=== PATIENT | female | born 1995 | race Caucasian/White ===

== ENCOUNTER 2021-11-12 07:14 | Observation (INO) ==
[2021-11-12] MEDS ORDERED: IOPAMIDOL 100 ML BOTTLE IV ONE (07:15)
--- NOTE | 2021-11-12 07:35 | Emergency Department Note ---
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 She reports that she underwent open surgical intervention of her Nutcracker syndrome one week ago at . She initially recovered well and was DC'd, but has had only one very small BM since the surgery. She continues to pass gas, but is now having nausea and vomiting significantly limiting her PO intake. The emesis is yellow or dry heaving, no blood or bile present. She also notes abdominal pain in the epigastric area and under the B/L ribs, which is aching, and is worse w/ emesis. She denies F/C, CP, SOB, and is urinating well. Related Data Previous Rx's Medication Instructions Recorded metoclopramide HCl 10 mg tablet 10 mg PO Q6H PRN #20 tab 07/22/21 Allergies Allergy/AdvReac Type Severity Reaction Status Date / Time morphine Allergy Intermediate Numbness Verified 11/12/21 07:20 Review of Systems ROS ROS Narrative: Narrative: All systems ED: reviewed and negative except as stated. PFSH Narrative Patient History Narrative: Narrative: Medical/Surgical/Family History All Active Problems (Updated 11/12/21 @ 18:45 by Isreal Little MD) Viral gastroenteritis (Acute) Nausea & vomiting (Acute) Diarrhea (Acute) Abdominal pain (Acute) Nausea & vomiting (Acute) Nutcracker phenomenon of renal vein (Acute) Pelvic pain (Acute) Acute dehydration (Acute) Pelvic congestion (Acute) Chronic female pelvic pain (Acute) Viral URI (Acute) Hordeolum externum (stye) (Acute) Urinary tract infection (Acute) Nausea & vomiting (Acute) Vomiting (Acute) Hypokalemia (Acute) Chest pain (Acute) Abdominal pain (Acute) Nutcracker phenomenon of renal vein (Acute) Medical History Hordeolum externum (stye) Social History Smoking Status: Former smoker Alcohol Intake Frequency: does not drink Substance Use: does not use Exam Narrative Narrative: Narrative: General Limitations: no limitations General appearance: Present alert and in no apparent distress Head Head: Present atraumatic and normocephalic ENT ENT: Present normal oropharynx and mucous membranes dry Chest Chest: Present normal inspection and symmetric chest wall rise Respiratory Respiratory: Present normal lung sounds bilaterally; Absent respiratory distress, rales/crackles, wheezes or stridor Cardiovascular Cardiovascular: Present regular rate, normal rhythm, +S1, +S2 and other (2+ B/L radial and DP pulses); Absent systolic murmur or diastolic murmur Adbominal Abdominal: Present soft, tenderness (epigastric area, B/LUQ), guarding (vo luntary), rigidity, diminished bowel sounds and other (midline vertical epigastric incision about 7cm healing well no surrounding erythema, no crepitus, no warmth, appropriate postop TTP); Absent distention or rebound Extremities Extremities: Absent pedal edema Neurological Neurological: Present alert and oriented X3 Psychiatric Psychiatric: Present normal affect Skin Skin: Present warm (WNL) and dry Course Vital Signs Vital signs: Vital Signs Temperature 98.0 F 11/12/21 07:14 Pulse Rate 79 11/12/21 07:14 Respiratory Rate 16 11/12/21 07:14 Blood Pressure 138/93 11/12/21 07:14 Pulse Oximetry (%) 98 11/12/21 07:14 Temperature 98.0 F 11/12/21 07:14 Pulse Rate 85 11/12/21 17:18 Respiratory Rate 16 11/12/21 07:14 Blood Pressure 152/91 11/12/21 17:16 Pulse Oximetry (%) 99 11/12/21 17:18 [facility] Narrative Medical decision making narrative: Narrative: 26 yo F w/ h/o Nutcracker syndrome now one week postop from surgical repair p/w abdominal pain, N/V, decreased BM. DDX - peritonitis, bowel obstruction, bowel perforation, intra-abdominal abscess, postop ileus Pt presented w/ a reassuring abdominal exam, uncomfortable d/t N/V, but stable. Given her recent open surgery for Nutcracker syndrome, I pursued a CT. CT demonstrated possible extrinsic compression of the L renal vein and venous congestion in the L kidney. There was no evidence of bowel perforation, obstruction, intra-abdominal abscess, ileus or other complication. I d/w Dr Arroyo, on for vascular surgery at [place], and he felt that it was actually compared prior to the previous CT and that there was no evidence of surgical complication. He was agreeable to T/F if needed for Sx control but there were ultimately no beds available at [place]. I cont'd managing her Sx w/ multiple rounds of antiemetics and IVF, however she had no improvement. I d/w him again and he felt that admission here for Sx control would be fine. Dr Guan then accepted the pt for admission. Lab Data Result diagrams: 11/12/21 07:35 11/12/21 07:35 Labs: Lab Results 11/12/21 11/12/21 11/12/21 Range/Units 07:35 07:35 07:40 WBC 12.2 H (4.5-11.0) K/mcL RBC 4.44 (3.59-5.38) M/mcL Hgb 13.2 (11.2-15.7) g/dL Hct 37.8 (34.1-44.9) % MCV 85.1 (80.0-100.0) fL MCH 29.7 (26.0-34.0) pg MCHC 34.9 (31.0-36.0) g/dL RDW 11.3 L (11.5-14.5) % Plt Count 383 (140-440) K/mcL MPV 9.6 (7.4-10.4) fL Neut % (Auto) 77.9 (38.0-78.0) % Lymph % (Auto) 14.2 L (15.5-49.0) % [place] % (Auto) 6.8 (1.0-12.0) % Eos % (Auto) 0.8 (0.0-7.0) % Baso % (Auto) 0.3 (0.0-2.0) % Lymph # (Auto) 1.74 (1.50-4.80) K/mcL [place] # (Auto) 0.83 (0.10-0.90) K/mcL Eos # (Auto) 0.10 (0.00-0.70) K/mcL Baso # (Auto) 0.04 (0.00-0.30) K/mcL Absolute Neutrophils 9.52 H (1.80-8.00) K/mcL Sodium 136 (133-145) mmol/L Potassium 3.7 (3.3-5.1) mmol/L Chloride 98 (96-108) mmol/L Carbon Dioxide 21 L (22-30) mmol/L Anion Gap 17.0 H (8.0-16.0) BUN 4 L (6-20) mg/dL Creatinine 0.9 (0.6-1.1) mg/dL GFR Calculation 89 Glucose 97 (70-105) mg/dL Calcium 9.8 (8.6-10.4) mg/dL Total Bilirubin 0.4 (0.1-1.0) mg/dL AST 52 H (<32) U/L ALT 29 (<40) U/L Alkaline Phosphatase 63 (39-117) U/L Total Protein 8.2 (5.9-8.4) gm/dL Albumin 4.6 (3.2-5.2) gm/dL Globulin 3.6 (2.2-3.7) gm/dL Albumin/Globulin Ratio 1.3 (1.0-2.3) Lipase 13 (7-60) U/L Urine Color Yellow Urine Appearance Hazy A (Clear) Urine pH 6.0 (5.0-9.0) Ur Specific [place] 1.021 (1.000-1.035) Urine Protein 30 A (Negative) mg/dL Urine Glucose (UA) Negative (Negative) mg/dL Urine Ketones 80 A (Negative) mg/dL Urine Occult Blood Negative (Negative) mg/dL Urine Nitrate Negative (Negative) Urine Bilirubin Negative (Negative) mg/dL Urine Urobilinogen Negative mg/dL Ur Leukocyte Esterase Negative (Negative) /uL Urine RBC 4 H (0-3) /hpf Urine WBC 6 H (0-4) /hpf Ur Squamous Epith Cells < 1 (0-4) /hpf Urine Bacteria None (0) /hpf Hyaline Casts 3 H (0-2) /lph Urine Mucus Many A (None) /hpf Ur Culture Indicated? No ED POC Tests ED POC Tests: ZECHARIAH - SARS Antigen Negative HCG POC Results Negative Discharge Plan Patient/Caregiver Discharge Instructions Pt seen by BRAKE REPAIRER/PA only: No Clinical Impression: Nausea & vomiting, Abdominal pain, Acute dehydration Patient Disposition: Xfer As Inpt ([facility]) Condition: Good Discharge Date/Time: 12/12/21 17:24
[2021-11-12 07:58] LABS: Basophils # (Auto) 0.04 K/mcL (0.00-0.30); Basophils % (Auto) 0.3 % (0.0-2.0); Eosinophils % (Auto) 0.8 % (0.0-7.0); Hematocrit 37.8 % (34.1-44.9); Hemoglobin 13.2 g/dL (11.2-15.7); Lymphocytes # (Auto) 1.74 K/mcL (1.50-4.80); Lymphocytes % (Auto) 14.2 % (15.5-49.0); Mean Cell Volume 85.1 fL (80.0-100.0); Mean Corpuscular HGB Conc 34.9 g/dL (31.0-36.0); Mean Platelet Volume 9.6 fL (7.4-10.4); Monocytes # (Auto) 0.83 K/mcL (0.10-0.90); Monocytes % (Auto) 6.8 % (1.0-12.0); Neutrophils % (Auto) 77.9 % (38.0-78.0); Platelet Count 383 K/mcL (140-440); RBC 4.44 M/mcL (3.59-5.38); Red Cell Distribution Width 11.3 % (11.5-14.5); WBC 12.2 K/mcL (4.5-11.0)
[2021-11-12] MEDS ORDERED: METOCLOPRAMIDE 10 MG/2 ML VIAL IV ONE ×2 (08:06→12:25)
[2021-11-12] MEDS ORDERED: diphenhydrAMINE 50 MG/ML VIAL IV ONE (08:06)
[2021-11-12 08:21] LABS: ALT/SGPT 29 U/L (<40); AST/SGOT 52 U/L (<32); Albumin 4.6 gm/dL (3.2-5.2); Albumin/Globulin Ratio 1.3 (1.0-2.3); Alkaline Phosphatase 63 U/L (39-117); Bilirubin,Total 0.4 mg/dL (0.1-1.0); Blood Urea Nitrogen 4 mg/dL (6-20); Calcium 9.8 mg/dL (8.6-10.4); Carbon Dioxide 21 mmol/L (22-30); Chloride 98 mmol/L (96-108); Globulin 3.6 gm/dL (2.2-3.7); Glomerular Filtration Rate 89; Glucose 97 mg/dL (70-105)
--- NOTE | 2021-11-12 08:32 | Cat Scan Report ---
INDICATION: Nausea and vomiting. Patient has a history of recent surgery for not Nutcracker Syndrome. COMPARISON: Preoperative CT scans dated 07/17/2021 and 07/08/2021 TECHNIQUE: Axial images were obtained through the abdomen and pelvis. Sagittally and coronally reformatted images. 80 mL Isovue 370 injected intravenously. Scans were obtained during arterial and portal venous phases FINDINGS: Lung bases:Negative. No pulmonary parenchymal nodule. No pleural fluid or pericardial fluid Liver:Negative. No focal intrahepatic mass. No focal abnormality. Liver contour is smooth. No evidence for cirrhosis Gallbladder, bilary:No calcified gallstones. No gallbladder wall thickening. No dilated intra or extrahepatic bile ducts. Spleen:No splenomegaly. Normal enhancement of splenic and portal veins. Pancreas:No pancreatic mass. No peripancreatic abnormality Adrenal glands:Negative Kidneys,ureters,bladder:Normal right kidney. Normal nephrogram with normal enhancement of cortex and medulla. No hydronephrosis. No solid or cystic mass. Left kidney is enlarged. Left kidney measures 11.6 cm in craniocaudal dimension compared with 9.8 cm renal length of the right kidney. There is heterogeneous enhancement with persistent cortical enhancement and delayed medullary enhancement. There is amorphous retroperitoneal soft tissue density. This is para-aortic and surrounds the renal veins and arteries as well as the superior mesenteric artery. Patient is recently postoperative. Renal arteries are normal bilaterally. No renal artery stenosis or thrombosis. Renal veins enhance normally. Right renal vein is normal and empties into the inferior vena cava. There is marked attenuation of the left renal vein proximal to the inferior vena caval insertion. This appears patent but markedly narrowed. There is no detectable intravenous filling defect and this narrowing appears to be extrinsic. Abnormality of the left renal parenchyma is probably due to venous congestion. No hydroureter. No ureteral calculus. No bladder stone. No detectable bladder mass. Gastrointestinal:No detectable colonic mass. There is no diverticulitis. Negative small bowel. No mechanical small bowel obstruction. No bowel wall thickening. No focal abnormality. Negative stomach and duodenum. No focal abnormality. Appendix: The appendix is negative Vascular:As described above this patient has undergone operative repair for Nutcracker Syndrome (left renal vein compression by superior mesenteric artery). There is retroperitoneal soft tissue density in the para-aortic soft tissues. The abdominal aorta is normal. There is no compression or aneurysmal enlargement. Celiac trunk is normal. Superior mesenteric artery opacifies normally without superior mesenteric arterial thrombus. Superior mesenteric vein is normal. Inferior mesenteric artery is normally opacified. As described above there is attenuation of the left renal vein as it enters the inferior vena cava. No intraluminal filling defects. Right renal vein appears normal Lymphatic:No retroperitoneal or mesenteric adenopathy Mesentery, peritoneum: No free intraperitoneal fluid. No mesenteric or retroperitoneal mass. No intra-abdominal abscess. Reproductive:Uterus is anteflexed. Patient has a history of prominent veins in the adnexae consistent with pelvic congestion. This appearance is somewhat improved Musculoskeletal:No lumbar compression fractures. Sacrum and pelvis are negative. No hip fracture. No abdominal wall or inguinal hernia. No abdominal wall fluid collection in this postoperative patient IMPRESSION: 1. Status post open surgical procedure for treatment of Nutcracker Syndrome (compression of the left renal vein by the superior mesenteric artery). 2. Amorphous retroperitoneal, para-aortic soft tissue density is probably post surgical. No intra-abdominal abscess or discrete mass. 3. Abnormal left kidney with renal enlargement and heterogeneous enhancement. There appears to be cortical enhancement with decreased medullary enhancement suggesting venous congestion 4. Attenuation of the left renal vein proximal to the inferior vena caval insertion. This vein remains patent. No detectable renal vein thrombosis. Attenuation appears to be due to extrinsic compression from retroperitoneal soft tissue density 5. Superior mesenteric artery and vein appear normal The exam was performed using radiation dose optimization techniques including, but not limited to, automated exposure control, adjustment of the mA and/or kV according to patient size and use of iterative reconstruction technique. Interpreted and Authenticated by: Andreas Sanchez 11/12/21
[2021-11-12 09:02] LABS: Appearance,Urine HAZY (Clear); Bilirubin,Urine Negative (Negative); Color,Urine YELLOW; Culture Indicated,Urine No; Glucose,Urine (UA) Negative (Negative); Ketones,Urine 80 mg/dL (Negative); Leukocyte Esterase,Urine Negative /uL (Negative); Mucus,Urine MANY /hpf; Nitrate,Urine Negative (Negative); Protein,Urine 30 mg/dL (Negative); Specific Gravity,Urine 1.021 (1.000-1.035); Urine Blood Negative (Negative); Urine Hyaline Cast 3 /lph (0-2); Urine RBC 4 /hpf (0-3); Urine Squamous Epithelial Cell < 1 /hpf (0-4); Urine WBC 6 /hpf (0-4); Urobilinogen,Urine Negative
[2021-11-12] MEDS ORDERED: PROMETHAZINE 25 MG/ML VIAL IV ONE ×2 (09:19→13:50)
[2021-11-12] MEDS ORDERED: ONDANSETRON 4 MG/2 ML VIAL IV ONE (10:20)
[2021-11-12] MEDS ORDERED: 0.9 % SODIUM CHLORIDE 1,000 ML IV ONE ×2 (11:23→12:25)
--- NOTE | 2021-11-12 17:28 | Internal Med History&Physical ---
HPI History of Present Illness Patient information: Note initiated : 11/12/21 at 5:24 pm Service Date, if different from initiated Date: [] Patient: Maria Luisa Pierre a 26 y/o F admitted on for vomiting blood. Chief Complaint: [] History of present illness: Ms. Pierre is a 26 year old F Presents to ED with nausea vomiting. She has a history of this secondary to nutcracker syndrome. She had surgery on Saturday with a vascular surgeon and [facility]. She says she was doing relatively well throughout the week but last night brushing middle night she has had continued nausea vomiting could not keep anything down. Diarrhea. CT abdomen pelvis was done which was unremarkable. Case and imaging was discussed with the vascular surgeon who felt the imaging looked improved and felt patient just need to be admitted for intractable nausea vomiting. Patient does not use marijuana, she says Reglan helps at times. She is tried inhaling rubbing alcohol through the nose but that has not helped. Review of Systems: Pertinent positives as above. Denies headache/fever/chills/chest or abdominal pain/cough/dyspnea/diarrhea. Remaining 10 point review of system reviewed negative PFSH PFSH All Active Problems Viral gastroenteritis (Acute) Nausea & vomiting (Acute) Diarrhea (Acute) Abdominal pain (Acute) Nausea & vomiting (Acute) Nutcracker phenomenon of renal vein (Acute) Pelvic pain (Acute) Acute dehydration (Acute) Pelvic congestion (Acute) Chronic female pelvic pain (Acute) Viral URI (Acute) Hordeolum externum (stye) (Acute) Urinary tract infection (Acute) Nausea & vomiting (Acute) Vomiting (Acute) Hypokalemia (Acute) Chest pain (Acute) Abdominal pain (Acute) Nutcracker phenomenon of renal vein (Acute) Medical History Hordeolum externum (stye) Social History alcohol intake frequency: does not drink substance use type: does not use MEDS/ALLERGIES Home Medications and Allergies Home Medications Medication Instructions Recorded Confirmed Type metoclopramide HCl 10 mg tablet 10 mg PO Q6H PRN #20 tab 07/22/21 11/12/21 Rx Allergies Allergy/AdvReac Type Severity Reaction Status Date / Time morphine Allergy Intermediate Numbness Verified 11/12/21 07:20 EXAM Constitutional Vitals: Temp Pulse Resp BP Pulse Ox 98.0 F 85 16 152/91 99 11/12/21 07:14 11/12/21 17:18 11/12/21 07:14 11/12/21 17:16 11/12/21 17:18 Exam: General: Alert, Awake, No acute Distress Eyes/N/T: EOMI, PERRL, Head/Neck: neck supple, normocephalic atraumatic CV: RRR, No murmurs, normal s1/s2 Pulm: Clear b/l, no wheezing/rhonchi/rales Abd: soft, nontender, +BS x4, midline incision clean dry intact Ext: no clubbing/cyanosis/edema Neuro: Alert, no focal deficits, moves all extremities, CN 2-12 grossly intact, symmetrical strength b/l upper/lower, sensations intact b/l upper/lower Skin: warm/dry DATA Data Completed and Pending Labs: Labs from last 24 hours 11/12/21 11/12/21 11/12/21 07:40 07:35 07:35 WBC 12.2 H RBC 4.44 Hgb 13.2 Hct 37.8 MCV 85.1 MCH 29.7 MCHC 34.9 RDW 11.3 L Plt Count 383 MPV 9.6 Neut % (Auto) 77.9 Lymph % (Auto) 14.2 L [place] % (Auto) 6.8 Eos % (Auto) 0.8 Baso % (Auto) 0.3 Lymph # (Auto) 1.74 [place] # (Auto) 0.83 Eos # (Auto) 0.10 Baso # (Auto) 0.04 Absolute Neutrophils 9.52 H Sodium 136 Potassium 3.7 Chloride 98 Carbon Dioxide 21 L Anion Gap 17.0 H BUN 4 L Creatinine 0.9 GFR Calculation 89 Glucose 97 Calcium 9.8 Total Bilirubin 0.4 AST 52 H ALT 29 Alkaline Phosphatase 63 Total Protein 8.2 Albumin 4.6 Globulin 3.6 Albumin/Globulin Ratio 1.3 Lipase 13 Urine Color Yellow Urine Appearance Hazy A Urine pH 6.0 Ur Specific [place] 1.021 Urine Protein 30 A Urine Glucose (UA) Negative Urine Ketones 80 A Urine Occult Blood Negative Urine Nitrate Negative Urine Bilirubin Negative Urine Urobilinogen Negative Ur Leukocyte Esterase Negative Urine RBC 4 H Urine WBC 6 H Ur Squamous Epith Cells < 1 Urine Bacteria None Hyaline Casts 3 H Urine Mucus Many A Ur Culture Indicated? No A/P Narrative A/P Narrative: A: *Intractable nausea vomiting: *h/o Nutcraker syndrome s/p vascular surgical repair [place] last Saturday: *Met acidosis: 2/2 above *Volume depletion: P: -Antiemetics including Ativan -IVF, NPO for now -ppx: SCD/ambulation Time Spent With Patient Time: Total time spent is greater than 50% in coordination of care (as documented) at patient's floor/unit and/or counseling patient:
[2021-11-12] MEDS ORDERED: DEXAMETHASONE 10 MG/ML VIAL IV ONE (17:44)
[2021-11-12] MEDS ORDERED: HYDROcodone/APAP 5/325MG TABLET PO PRN (17:44)
[2021-11-12] MEDS ORDERED: diphenhydrAMINE 50 MG/ML VIAL IV PRN (17:44)
[2021-11-12] MEDS ORDERED: POTASSIUM CHLORIDE 20 MEQ TABLET PO PRN ×2 (17:44)
[2021-11-12] MEDS ORDERED: POTASSIUM CHLORIDE 40 MEQ in DEXTROSE 5% IN WATER 500 ML IV PRN (17:44)
[2021-11-12] MEDS ORDERED: POTASSIUM CHLORIDE 20 MEQ in DEXTROSE 5%-1/2NS 1,000 ML IV SCH (17:44)
[2021-11-12] MEDS ORDERED: MAGNESIUM SULFATE 2 GM/50 ML BAG IV PRN (17:44)
[2021-11-12] MEDS ORDERED: POLYETHYLENE GLYCOL 3350 17 GM PACKET PO PRN (17:44)
[2021-11-12] MEDS ORDERED: SENNOSIDES 1 TABLET PO PRN (17:44)
[2021-11-12] MEDS ORDERED: ACETAMINOPHEN 325 MG TABLET PO PRN (17:44)
[2021-11-12] MEDS ORDERED: PROMETHAZINE 25 MG/ML VIAL ONE (18:27)
[2021-11-12] MEDS: PROMETHAZINE 25 MG/ML VIAL IV PRN (18:34)
[2021-11-12] MEDS: HYDROmorphone 0.5 MG/0.5 ML SYRINGE IV PRN (19:20)
[2021-11-12] MEDS ORDERED: HYDROmorphone 0.5 MG/0.5 ML SYRINGE ONE (19:23)
[2021-11-12] MEDS: DEXTROSE 5%-1/2NS W/20MEQ KCL 1,000 ML IV SCH (20:21)
[2021-11-12] MEDS: 0.9 % SODIUM CHLORIDE 10 ML SYRINGE IV SCH (22:13)
[2021-11-12] MEDS: PROCHLORPERAZINE 10 MG/2 ML VIAL IV PRN (22:30)
[2021-11-13] MEDS: HYDROmorphone 0.5 MG/0.5 ML SYRINGE IV PRN ×3 (02:44→23:04)
[2021-11-13] MEDS: 0.9 % SODIUM CHLORIDE 10 ML SYRINGE IV SCH ×3 (04:56→20:06)
--- NOTE | 2021-11-13 07:16 | Internal Med Progress Note ---
SUBJECTIVE Subjective Patient information: Note initiated : 11/13/21 at 7:13 am Service Date, if different from initiated Date: [] Patient: Maria Luisa Pierre a 26 y/o F admitted on 11/12/21 for vomiting blood. Chief Complaint: [] Interval history: History of present illness: Ms. Pierre is a 26 year old F Presents to ED with nausea vomiting. She has a history of this secondary to nutcracker syndrome. She had surgery on Saturday with a vascular surgeon and [facility]. She says she was doing relatively well throughout the week but last night brushing middle night she has had continued nausea vomiting could not keep anything down. Diarrhea. CT abdomen pelvis was done which was unremarkable. Case and imaging was discussed with the vascular surgeon who felt the imaging looked improved and felt patient just need to be admitted for intractable nausea vomiting. Patient does not use marijuana, she says Reglan helps at times. She is tried inhaling rubbing alcohol through the nose but that has not helped. 11/13 Patient mistakenly got a popsicle last night had some nausea vomiting afterwards but was good for the rest the night. Feels fairly well this morning wants to try a clear liquid diet. Awaiting a.m. labs. Review of Systems: denies headache/fever/chills/chest or abdominal pain/cough/dyspnea/diarrhea. Otherwise see above. Constitutional Vitals: Vital Signs Temp Pulse Resp BP Pulse Ox 97.2 F 97 H 14 122/78 97 11/13/21 03:31 11/13/21 03:31 11/13/21 03:31 11/13/21 03:31 11/13/21 03:31 Period Temp Pulse Resp BP Sys/[place] Pulse Ox Last 24 Hr 97.2 F-98.0 F 67-111 14-18 104-165/64-135 96-100 Intake and Output 11/12/21 11/13/21 11/13/21 21:59 05:59 13:59 Intake Total 1000 Output Total 300 775 Balance 700 -775 Weight 71.242 kg Intake & Output: Intake & Output 11/12/21 11/13/21 11/13/21 21:59 05:59 13:59 Intake Total 1000 Output Total 300 775 Balance 700 -775 Weight 71.242 kg Intake: IV 1000 Sodium Chloride 0.9% 1,000 ml @ 1000 Wide Open IV BOLUS ONE Rx#: [id number] Output: Void Amount 125 Emesis 300 650 Other: Urine Appearance Clear Urine Color Bright Yellow Urine Odor Normal # Voids 1 Exam: General: Alert, Awake, No acute Distress Eyes/N/T: EOMI, , Head/Neck: neck supple, CV: RRR, No murmurs, Pulm: Clear b/l, no wheezing/rhonchi/rales Abd: soft, nontender, +BS x4, midline incision clean dry intact Ext: no clubbing/cyanosis/edema Neuro: Alert, no focal deficits, moves all extremities, Skin: warm/dry OBJ DATA Labs CBC & Chem 7: 11/12/21 07:35 11/12/21 07:35 Labs: Abnormal Lab Results 11/12/21 11/12/21 11/12/21 07:40 07:35 07:35 WBC 12.2 H RDW 11.3 L Lymph % (Auto) 14.2 L Absolute Neutrophils 9.52 H Carbon Dioxide 21 L Anion Gap 17.0 H BUN 4 L AST 52 H Urine Appearance Hazy A Urine Protein 30 A Urine Ketones 80 A Urine RBC 4 H Urine WBC 6 H Hyaline Casts 3 H Urine Mucus Many A Meds: Medications Acetaminophen (Acetaminophen 325 Mg Tablet) 650 mg PO Q6HP PRN; Protocol PRN Reason: Per Pain Protocol/Fever > 101 Hydrocodone Bitart/Acetaminophen (Hydrocodone/Apap 5/325mg Tablet) 1 tab PO Q4HP PRN PRN Reason: PAIN LEVEL 3-6 Diphenhydramine HCl (Diphenhydramine 50 Mg/Ml Vial) 25 mg IV Q4-6HP PRN PRN Reason: nausea Hydromorphone HCl (Hydromorphone 0.5 Mg/0.5 Ml Syringe) 0.5 mg IV Q2HP PRN; Pr otocol PRN Reason: Per Pain Protocol Last Admin: 11/13/21 05:47 Dose: 0.5 mg Documented by: Potassium Chloride 40 meq/ (Dextrose) 520 mls @ 130 mls/hr IV UD PRN PRN Reason: Potassium < 3 Magnesium Sulfate (Magnesium Sulfate) 2 gm in 50 mls @ 50 mls/hr IV UD PRN PRN Reason: Magnesium </= 1.6 Potassium Chloride/Dextrose/Sod Cl (Dextrose 5%-1/2ns W/20meq Kcl) 1,000 mls @ 84 mls/hr IV Q12H [facility] Last Admin: 11/12/21 20:21 Dose: 84 mls/hr Documented by: Lorazepam (Lorazepam 2 Mg/Ml Vial) 0.5 mg IV Q4-6HP PRN PRN Reason: Nausea/Vomiting Metoclopramide HCl (Metoclopramide 10 Mg/2 Ml Vial) 10 mg IV Q6HP PRN PRN Reason: Nausea And Vomiting Ondansetron HCl (Ondansetron 4 Mg/2 Ml Vial) 4 mg IV Q4HP PRN PRN Reason: Nausea And Vomiting Polyethylene Glycol (Polyethylene Glycol 3350 17 Gm Packet) 17 gm PO DAILYP PRN PRN Reason: Constipation Potassium Chloride (Potassium Chloride 20 Meq Tablet) 40 meq PO UD PRN PRN Reason: Potssium is 3-3.5 Potassium Chloride (Potassium Chloride 20 Meq Tablet) 40 meq PO UD PRN PRN Reason: Potassium < 3 Prochlorperazine (Prochlorperazine 10 Mg/2 Ml Vial) 10 mg IV Q6HP PRN PRN Reason: Nausea And Vomiting Last Admin: 11/12/21 22:30 Dose: 10 mg Documented by: Promethazine HCl (Promethazine 25 Mg/Ml Vial) 12.5 mg IV Q6HP PRN PRN Reason: Nausea And Vomiting Last Admin: 11/12/21 18:34 Dose: 12.5 mg Documented by: Senna (Sennosides 1 Tablet) 2 tab PO DAILYP PRN PRN Reason: Constipation Sodium Chloride (0.9 % Sodium Chloride 10 Ml Syringe) 10 ml IV Q8 [facility] Last Admin: 11/13/21 04:56 Dose: Not Given Documented by: A/P Narrative A/P Narrative: A: *Intractable nausea/ vomiting: *h/o Nutcraker syndrome s/p vascular surgical repair [place] last Saturday: *Met acidosis: 2/2 above *Volume depletion: P: -Antiemetics including Ativan -decrease IVF's and start clears today -ppx: SCD/ambulation Time Spent With Patient Time: Total time spent is greater than 50% in coordination of care (as documented) at patient's floor/unit and/or counseling patient:
[2021-11-13] MEDS: DEXTROSE 5%-1/2NS W/20MEQ KCL 1,000 ML IV SCH ×2 (08:25→11:42)
[2021-11-13] MEDS: LORazepam 2 MG/ML VIAL IV PRN ×2 (09:11→15:20)
[2021-11-13] MEDS: ONDANSETRON 4 MG/2 ML VIAL IV PRN (10:40)
[2021-11-13 12:25] LABS: Basophils # (Auto) 0.02 K/mcL (0.00-0.30); Basophils % (Auto) 0.1 % (0.0-2.0); Eosinophils # (Auto) 0 K/mcL (0.00-0.70); Eosinophils % (Auto) 0 % (0.0-7.0); Hematocrit 34.1 % (34.1-44.9); Hemoglobin 11.9 g/dL (11.2-15.7); Lymphocytes % (Auto) 8.9 % (15.5-49.0); Mean Cell Volume 87.7 fL (80.0-100.0); Mean Corpuscular HGB Conc 34.9 g/dL (31.0-36.0); Monocytes # (Auto) 1.04 K/mcL (0.10-0.90); Monocytes % (Auto) 5.8 % (1.0-12.0); Neutrophils % (Auto) 85.2 % (38.0-78.0); Platelet Count 364 K/mcL (140-440); RBC 3.89 M/mcL (3.59-5.38); Red Cell Distribution Width 11.8 % (11.5-14.5)
[2021-11-13 12:26] LABS: ALT/SGPT 33 U/L (<40); AST/SGOT 45 U/L (<32); Albumin 4.3 gm/dL (3.2-5.2); Albumin/Globulin Ratio 1.3 (1.0-2.3); Alkaline Phosphatase 59 U/L (39-117); Bilirubin,Direct < 0.2 mg/dL (0-0.3); Bilirubin,Total 0.3 mg/dL (0.1-1.0); Blood Urea Nitrogen 6 mg/dL (6-20); Calcium 9.6 mg/dL (8.6-10.4); Carbon Dioxide 22 mmol/L (22-30); Chloride 96 mmol/L (96-108); Globulin 3.4 gm/dL (2.2-3.7); Glomerular Filtration Rate 103; Glucose 119 mg/dL (70-105); Lactate Dehydrogenase 346 U/L (135-225); Phosphorous 3.6 mg/dL (2.5-4.5); Triglycerides 162 mg/dL (<150); Uric Acid 4.1 mg/dL (2.5-8.0)
[2021-11-13] MEDS: METOCLOPRAMIDE 10 MG/2 ML VIAL IV PRN ×2 (12:28→19:37)
[2021-11-13] MEDS: PROMETHAZINE 25 MG/ML VIAL IV PRN (14:17)
[2021-11-13] MEDS: PROCHLORPERAZINE 10 MG/2 ML VIAL IV PRN ×2 (17:06→22:25)
[2021-11-13] MEDS: BENZOCAINE/MENTHOL 1 LOZENGE PO PRN (20:06)
[2021-11-14] MEDS: BENZOCAINE/MENTHOL 1 LOZENGE PO PRN ×2 (03:02→16:38)
[2021-11-14] MEDS: 0.9 % SODIUM CHLORIDE 10 ML SYRINGE IV SCH ×3 (04:17→20:46)
[2021-11-14] MEDS: DEXTROSE 5%-1/2NS W/20MEQ KCL 1,000 ML IV SCH (04:37)
[2021-11-14] MEDS: PROCHLORPERAZINE 10 MG/2 ML VIAL IV PRN (05:25)
[2021-11-14] MEDS: PROMETHAZINE 25 MG/ML VIAL IV PRN (08:25)
[2021-11-14 09:06] LABS: Basophils # (Auto) 0.02 K/mcL (0.00-0.30); Basophils % (Auto) 0.1 % (0.0-2.0); Eosinophils # (Auto) 0.03 K/mcL (0.00-0.70); Eosinophils % (Auto) 0.2 % (0.0-7.0); Hematocrit 34.3 % (34.1-44.9); Lymphocytes # (Auto) 1.82 K/mcL (1.50-4.80); Lymphocytes % (Auto) 11.4 % (15.5-49.0); Mean Cell Volume 87.1 fL (80.0-100.0); Mean Platelet Volume 9.8 fL (7.4-10.4); Monocytes # (Auto) 1.39 K/mcL (0.10-0.90); Monocytes % (Auto) 8.7 % (1.0-12.0); Neutrophils % (Auto) 79.6 % (38.0-78.0); Platelet Count 358 K/mcL (140-440); RBC 3.94 M/mcL (3.59-5.38); Red Cell Distribution Width 11.5 % (11.5-14.5); WBC 15.9 K/mcL (4.5-11.0)
[2021-11-14 09:43] LABS: ALT/SGPT 25 U/L (<40); AST/SGOT 26 U/L (<32); Albumin/Globulin Ratio 1.3 (1.0-2.3); Alkaline Phosphatase 57 U/L (39-117); Bilirubin,Total 0.4 mg/dL (0.1-1.0); Blood Urea Nitrogen 9 mg/dL (6-20); Calcium 8.9 mg/dL (8.6-10.4); Carbon Dioxide 21 mmol/L (22-30); Chloride 99 mmol/L (96-108); Globulin 3.2 gm/dL (2.2-3.7); Glomerular Filtration Rate 103; Glucose 95 mg/dL (70-105)
[2021-11-14] MEDS: ONDANSETRON 4 MG/2 ML VIAL IV PRN (10:31)
[2021-11-14] MEDS: METOCLOPRAMIDE 10 MG/2 ML VIAL IV PRN (11:40)
[2021-11-14] MEDS ORDERED: LORazepam 2 MG/ML VIAL IV PRN (14:13)
--- NOTE | 2021-11-14 14:23 | Internal Med Progress Note ---
SUBJECTIVE Subjective Patient information: Note initiated : 11/14/21 at 2:13 pm Service Date, if different from initiated Date: [] Patient: Maria Luisa Pierre a 26 y/o F admitted on 11/12/21 for vomiting blood. Chief Complaint: [nausea vomiting] Interval history: Ms. Pierre is a 26 year old F Presents to ED with nausea vomiting. She has a history of this secondary to nutcracker syndrome. She had surgery on Saturday with a vascular surgeon and [facility]. She says she was doing relatively well throughout the week but last night brushing middle night she has had continued nausea vomiting could not keep anything down. Diarrhea. CT abdomen pelvis was done which was unremarkable. Case and imaging was discussed with the vascular surgeon who felt the imaging looked improved and felt patient just need to be admitted for intractable nausea vomiting. Patient does not use marijuana, she says Reglan helps at times. She is tried inhaling rubbing alcohol through the nose but that has not helped. 11/13 Patient mistakenly got a popsicle last night had some nausea vomiting afterwards but was good for the rest the night. Feels fairly well this morning wants to try a clear liquid diet. Awaiting a.m. labs. 11/14: Still have nausea and multiple episode of NBNB vomiting since this morning. Poor appetite and could barely tolerate clear liquid diet. Denies any abdominal pain. Also states that she has not passed by bowel movement since surgery; has been passing gas. Constitutional Vitals: Vital Signs Temp Pulse Resp BP Pulse Ox 36.9 C 75 20 127/84 94 11/14/21 12:00 11/14/21 12:00 11/14/21 12:00 11/14/21 12:00 11/14/21 12:00 Period Temp Pulse Resp BP Sys/[place] Pulse Ox Last 24 Hr 36.4 C-37.2 C 64-104 12- 127-155/80-99 94-98 Intake and Output 11/14/21 11/14/21 11/14/21 05:59 13:59 21:59 Intake Total 1300 120 Output Total 350 650 Balance 950 -530 Intake & Output: Intake & Output 11/14/21 11/14/21 11/14/21 05:59 13:59 21:59 Intake Total 1300 120 Output Total 350 650 Balance 950 -530 Intake: IV 1000 Dextrose 5%-1/2Ns W/20Meq KCl 1 1000 ,000 ml @ 50 mls/hr IV Q20H [facility] Rx#:[id number] Oral 300 120 Output: Void Amount 350 150 Emesis 500 Other: Urine Appearance Clear Urine Color Bright Yellow Dark Yellow Urine Odor Normal Strong # Unmeasured Emesis 1 Head Head exam: Present atraumatic and normal inspection Eye Eye exam: Present normal appearance ENT ENT exam: Present mucous membranes moist, normal exam and normal external ear exam Neck Neck exam: Present normal inspection Respiratory Respiratory exam: Present normal respiratory exam Cardiovascular Cardiovascular exam: Present normal rate and rhythm GI/Abdominal GI/Abdominal exam: Present normal bowel sounds and tenderness Additional comments: Surgical abdominal ventral incision with jeanna in place, good healing Back Exam Back exam: Present normal inspection Neurological Exam Neurological exam: Present alert and oriented X3 Skin Skin exam: Present intact and warm OBJ DATA Labs CBC & Chem 7: 11/14/21 05:51 11/14/21 05:51 Labs: Abnormal Lab Results 11/14/21 11/14/21 11/13/21 05:51 05:51 05:27 WBC 15.9 H RDW Neut % (Auto) 79.6 H Lymph % (Auto) 11.4 L [place] # (Auto) 1.39 H Absolute Neutrophils 12.67 H Sodium 132 L 131 L Carbon Dioxide 21 L Anion Gap BUN Glucose 119 H AST 45 H Lactate Dehydrogenase 346 H Triglycerides 162 H Urine Appearance Urine Protein Urine Ketones Urine RBC Urine WBC Hyaline Casts Urine Mucus 11/13/21 11/12/21 11/12/21 05:27 07:40 07:35 WBC 18.0 H RDW Neut % (Auto) 85.2 H Lymph % (Auto) 8.9 L [place] # (Auto) 1.04 H Absolute Neutrophils 15.35 H Sodium Carbon Dioxide 21 L Anion Gap 17.0 H BUN 4 L Glucose AST 52 H Lactate Dehydrogenase Triglycerides Urine Appearance Hazy A Urine Protein 30 A Urine Ketones 80 A Urine RBC 4 H Urine WBC 6 H Hyaline Casts 3 H Urine Mucus Many A 11/12/21 07:35 WBC 12.2 H RDW 11.3 L Neut % (Auto) Lymph % (Auto) 14.2 L [place] # (Auto) Absolute Neutrophils 9.52 H Sodium Carbon Dioxide Anion Gap BUN Glucose AST Lactate Dehydrogenase Triglycerides Urine Appearance Urine Protein Urine Ketones Urine RBC Urine WBC Hyaline Casts Urine Mucus Meds: Medications Acetaminophen (Acetaminophen 325 Mg Tablet) 650 mg PO Q6HP PRN; Protocol PRN Reason: Per Pain Protocol/Fever > 101 Hydrocodone Bitart/Acetaminophen (Hydrocodone/Apap 5/325mg Tablet) 1 tab PO Q4HP PRN PRN Reason: PAIN LEVEL 3-6 Diphenhydramine HCl (Diphenhydramine 50 Mg/Ml Vial) 25 mg IV Q4-6HP PRN PRN Reason: nausea Hydromorphone HCl (Hydromorphone 0.5 Mg/0.5 Ml Syringe) 0.5 mg IV Q2HP PRN; Protocol PRN Reason: Per Pain Protocol Last Admin: 11/13/21 23:04 Dose: 0.5 mg Documented by: Potassium Chloride 40 meq/ (Dextrose) 520 mls @ 130 mls/hr IV UD PRN PRN Reason: Potassium < 3 Magnesium Sulfate (Magnesium Sulfate) 2 gm in 50 mls @ 50 mls/hr IV UD PRN PRN Reason: Magnesium </= 1.6 Potassium Chloride/Dextrose/Sod Cl (Dextrose 5%-1/2ns W/20meq Kcl) 1,000 mls @ 50 mls/hr IV Q20H DIAZ Last Admin: 11/14/21 04:37 Dose: 50 mls/hr Documented by: Lorazepam (Lorazepam 2 Mg/Ml Vial) 0.5 mg IV Q4-6HP PRN PRN Reason: Nausea/Vomiting Last Admin: 11/13/21 15:20 Dose: 0.5 mg Documented by: Metoclopramide HCl (Metoclopramide 10 Mg/2 Ml Vial) 10 mg IV Q6HP PRN PRN Reason: Nausea And Vomiting Last Admin: 11/14/21 11:40 Dose: 10 mg Documented by: Ondansetron HCl (Ondansetron 4 Mg/2 Ml Vial) 4 mg IV Q4HP PRN PRN Reason: Nausea And Vomiting Last Admin: 11/14/21 10:31 Dose: 4 mg Documented by: Polyethylene Glycol (Polyethylene Glycol 3350 17 Gm Packet) 17 gm PO DAILYP PRN PRN Reason: Constipation Potassium Chloride (Potassium Chloride 20 Meq Tablet) 40 meq PO UD PRN PRN Reason: Potssium is 3-3.5 Potassium Chloride (Potassium Chloride 20 Meq Tablet) 40 meq PO UD PRN PRN Reason: Potassium < 3 Prochlorperazine (Prochlorperazine 10 Mg/2 Ml Vial) 10 mg IV Q6HP PRN PRN Reason: Nausea And Vomiting Last Admin: 11/14/21 05:25 Dose: 10 mg Documented by: Promethazine HCl (Promethazine 25 Mg/Ml Vial) 12.5 mg IV Q6HP PRN PRN Reason: Nausea And Vomiting Last Admin: 11/14/21 08:25 Dose: 12.5 mg Documented by: Senna (Sennosides 1 Tablet) 2 tab PO DAILYP PRN PRN Reason: Constipation Sodium Chloride (0.9 % Sodium Chloride 10 Ml Syringe) 10 ml IV Q8 DIAZ Last Admin: 11/14/21 04:17 Dose: Not Given Documented by: Throat Lozenges (Benzocaine/Menthol 1 Lozenge) 1 lozenge PO PRN PRN PRN Reason: Sore Throat Last Admin: 11/14/21 03:02 Dose: 1 lozenge Documented by: A/P Assessment and plan (1) Nausea & vomiting: Status: Acute (2) Nutcracker phenomenon of renal vein: Status: Acute Narrative A/P Narrative: Assessment and Plans: 1. Nausea and vomiting s/p surgery by vascular surgeon for Nutcracker syndrome on 11/07: Observation med surg D5 1/2NS w/ KCL 20mEq @50cc/hr for hydration Clear liquid diet advance as tolerate to regular diet KUB Zofran IV PRN nausea vomiting Reglan IV PRN nausea vomiting Compazine IV PRN nausea vomiting Phenergan IV PRN nausea vomiting Ativan IV PRN nausea vomiting 2. 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
--- NOTE | 2021-11-14 15:43 | XRay Report ---
CLINICAL INFORMATION: follow up study, post-surgical nausea vomiting COMPARISON: None. FINDINGS: The GI tract is relatively decompressed following surgery.. There is no free air, soft tissue mass, organomegaly or pathologic calcification. IMPRESSION: No acute disease. GI tract decompression as expected Interpreted and Authenticated by: Andreas Serna 11/14/21
[2021-11-15] MEDS: DEXTROSE 5%-1/2NS W/20MEQ KCL 1,000 ML IV SCH (02:34)
[2021-11-15] MEDS: 0.9 % SODIUM CHLORIDE 10 ML SYRINGE IV SCH (05:41)
[2021-11-15 07:04] LABS: Basophils # (Auto) 0.04 K/mcL (0.00-0.30); Basophils % (Auto) 0.3 % (0.0-2.0); Eosinophils # (Auto) 0.07 K/mcL (0.00-0.70); Eosinophils % (Auto) 0.5 % (0.0-7.0); Hematocrit 36.3 % (34.1-44.9); Hemoglobin 12.3 g/dL (11.2-15.7); Lymphocytes # (Auto) 1.99 K/mcL (1.50-4.80); Lymphocytes % (Auto) 13.6 % (15.5-49.0); Mean Cell Volume 85.4 fL (80.0-100.0); Mean Corpuscular HGB Conc 33.9 g/dL (31.0-36.0); Mean Platelet Volume 9.7 fL (7.4-10.4); Monocytes # (Auto) 1.33 K/mcL (0.10-0.90); Monocytes % (Auto) 9.1 % (1.0-12.0); Neutrophils % (Auto) 76.5 % (38.0-78.0); Platelet Count 412 K/mcL (140-440); RBC 4.25 M/mcL (3.59-5.38); Red Cell Distribution Width 11.4 % (11.5-14.5); WBC 14.6 K/mcL (4.5-11.0)
[2021-11-15 09:17] LABS: ALT/SGPT 18 U/L (<40); AST/SGOT 19 U/L (<32); Albumin/Globulin Ratio 1.3 (1.0-2.3); Alkaline Phosphatase 59 U/L (39-117); Bilirubin,Total 0.4 mg/dL (0.1-1.0); Blood Urea Nitrogen 7 mg/dL (6-20); Carbon Dioxide 20 mmol/L (22-30); Chloride 96 mmol/L (96-108); Glomerular Filtration Rate 121; Glucose 97 mg/dL (70-105)
--- NOTE | 2021-11-15 10:23 | Discharge Summary ---
Discharge Provider Provider Patient information: Note initiated : 11/15/21 at 10:19 am Service Date, if different from initiated Date: [] Patient: Maria Luisa Pierre a 26 y/o F admitted on 11/12/21 for vomiting blood. Chief Complaint: [] Date of admission: 11/12/21 17:24 Discharge date: 11/15/21 Primary care physician: Berto Hudson Attending physician on admission: Jared Jordan Consults: 11/12/21 Consult to Physician [CONS] Stat Comment: Consulting Provider: Beck Guan Reason For Exam: Physician to Consult Attending physician on discharge: Jared Olguin Pui Discharge Meds Discharge Medications Home Medications metoclopramide HCl 10 mg tablet 10 mg PO Q6H PRN #20 tab 07/22/21 [Rx Confirmed 11/12/21 Last Taken Unknown] hydrocodone 5 mg-acetaminophen 325 mg tablet 1 tab PO Q4HP PRN #20 tab 11/15/21 [Rx Last Taken Unknown] ondansetron HCl 4 mg tablet (Zofran) 4 mg PO Q8H PRN #20 tab 11/15/21 [Rx Last Taken Unknown] COURSE Hospital Course Hospital course: Ms. Pierre is a 26 year old F Presents to ED with nausea vomiting. She has a history of this secondary to nutcracker syndrome. She had surgery on Saturday with a vascular surgeon and [facility]. She says she was doing relatively well throughout the week but last night brushing middle night she has had continued nausea vomiting could not keep anything down. Diarrhea. CT abdomen pelvis was done which was unremarkable. Case and imaging was discussed with the vascular surgeon who felt the imaging looked improved and felt patient just need to be admitted for intractable nausea vomiting. Patient does not use marijuana, she says Reglan helps at times. She is tried inhaling rubbing alcohol through the nose but that has not helped. 11/13 Patient mistakenly got a popsicle last night had some nausea vomiting afterwards but was good for the rest the night. Feels fairly well this morning wants to try a clear liquid diet. Awaiting a.m. labs. 11/14: Still have nausea and multiple episode of NBNB vomiting since this morning. Poor appetite and could barely tolerate clear liquid diet. Denies any abdominal pain. Also states that she has not passed by bowel movement since surgery; has been passing gas. 11/15: Symptoms resolved. Denies nausea, vomiting, abdominal pain. Tolerating diet. Reached clinical stability. Discharged home. Discharge diagnosis: intractable nausea vomiting Time Spent with Patient Time attestation: Total time spent providing and/or coordinating discharge services: Time spent: Less than 30 minutes EXAM Constitutional Vitals: Temp Pulse Resp BP Pulse Ox 36.5 C 80 20 130/83 98 11/15/21 08:00 11/15/21 08:00 11/15/21 08:00 11/15/21 08:00 11/15/21 08:00 General appearance: cooperative and no acute distress Head Head exam: Present atraumatic and normocephalic Eye Eye exam: Present EOMI and PERRL ENT ENT exam: Present mucous membranes moist, normal exam and normal external ear exam Neck Neck exam: Present normal inspection; Absent lymphadenopathy, tenderness or thyromegaly Respiratory Respiratory exam: Absent accessory muscle use, respiratory distress or wheezes Cardiovascular Cardiovascular exam: Present normal rate and rhythm; Absent JVD GI/Abdominal GI/Abdominal exam: Present normal bowel sounds, soft and tenderness; Absent organomegaly Additional comments: Ventral abdominal surgical incision with jeanna in place, healing well Extremities Exam Extremities exam: Present full ROM, normal capillary refill and normal inspection; Absent tenderness Neurological Exam Neurological exam: Present alert, CN II-XII intact and oriented X3; Absent motor sensory deficit Psychiatric Psychiatric exam: Present normal affect and normal mood; Absent anxious or depressed Skin Skin exam: Present dry and intact Discharge Data Data Completed and Pending Labs on day of discharge: Labs from last 24 hours 11/15/21 11/15/21 05:32 05:31 WBC 14.6 H RBC 4.25 Hgb 12.3 Hct 36.3 MCV 85.4 MCH 28.9 MCHC 33.9 RDW 11.4 L Plt Count 412 MPV 9.7 Neut % (Auto) 76.5 Lymph % (Auto) 13.6 L [place] % (Auto) 9.1 Eos % (Auto) 0.5 Baso % (Auto) 0.3 Lymph # (Auto) 1.99 [place] # (Auto) 1.33 H Eos # (Auto) 0.07 Baso # (Auto) 0.04 Absolute Neutrophils 11.18 H Sodium 132 L Potassium 3.9 Chloride 96 Carbon Dioxide 20 L Anion Gap 16.0 BUN 7 Creatinine 0.7 GFR Calculation 121 Glucose 97 Calcium 9.0 Total Bilirubin 0.4 AST 19 ALT 18 Alkaline Phosphatase 59 Total Protein 7.0 Albumin 4.0 Globulin 3.0 Albumin/Globulin Ratio 1.3 Discharge Plan Patient/Caregiver Discharge Instructions Activity: increase activity as tolerated Diet: Regular Diet Prescriptions: New hydrocodone-acetaminophen 5-325 mg Tablet 1 tab PO Q4HP PRN (Reason: Pain Level 3-6) Qty: 20 0RF ondansetron HCl [Zofran] 4 mg tablet 4 mg PO Q8H PRN (Reason: nausea and vomiting) Qty: 20 0RF Continued metoclopramide HCl 10 mg tablet 10 mg PO Q6H PRN (Reason: nausea and vomiting) Qty: 20 0RF Follow Up Plan Follow up with: Berto Hudson MD [Primary Care Provider] - Patient Disposition: Home, Self-Care Prognosis: Good Rehab Potential: Good I certify that the patient requires SNF services: No Overall status at discharge: patient is back to baseline Discharge Orders: Discharge Order (Routine); Ordered 11/15/21 Ordered By: Jared Jordan
== END 2021-11-15 11:40 | disposition home or self-care (01) ==
LOC: ED 07:14 → MEDSUR 07:14
PROVIDERS: ADMIT Internal Medicine; ATTEND Internal Medicine